=== PATIENT | male | born 1995 | race Caucasian/White ===

== ENCOUNTER → 2016-10-10 | Outpatient (REF) ==
--- NOTE | 2016-10-10 09:43 | REP ---
Bilateral TIB-fib series: Seven views. History: Degenerative disc disease. Disability. Findings: Multiple views of the tibia and fibula are presented bilaterally. There is mild hypertrophy of the anterior tibial apophysis on the left which may reflect old Latesha-Schlatter. Bones, joints, and soft tissues are otherwise radiographically unremarkable. No acute bony abnormality. Impression: Mild hypertrophy of the anterior tibial apophysis on the left, question old Latesha-Schlatter. Otherwise negative. Signed by Chai Manzanares MD 10/10/2016 10:23 A
--- NOTE | 2016-10-10 09:44 | REP ---
Lumbar spine series: Five views. History: Degenerative disc disease. Disability. No comparison imaging. Findings: Lumbar vertebral body heights are preserved and alignment is normal. There is some straightening of the normal lumbar lordosis. Disc spaces are maintained. Pedicles and posterior elements are intact. There is no evidence of spondylolysis or spondylolisthesis. Sacrum and SI joints are unremarkable. Psoas margins are symmetric. The visualized bowel gas pattern is normal. Impression: Slight straightening. Otherwise normal lumbar spine radiographs. Signed by Chai Manzanares MD 10/10/2016 10:23 A
--- NOTE | 2016-10-10 09:47 | REP ---
LEFT HIP: Two views. HISTORY: Disability. FINDINGS: AP and frog-leg views of the left hip demonstrate smooth rounded femoral head and intact hip joint space. Periarticular soft tissues are unremarkable. No erosive change or bony destructive lesion is seen. IMPRESSION: Normal left hip radiographs. Signed by Chai Manzanares MD 10/10/2016 10:24 A
--- NOTE | 2016-10-10 09:49 | REP ---
LEFT KNEE: Five views. HISTORY: Degenerative disc disease. Disability. FINDINGS: Five views of the left knee demonstrate mild old hypertrophy of the anterior tibial apophysis at the distal patellar tendon insertion. This may reflect old Latesha-Schlatter disease. Bones, joints, and soft tissues are otherwise unremarkable. IMPRESSION: Mild bony hypertrophy of the anterior tibial apophysis, question old Latesha-Schlatter. Otherwise negative left knee radiographs. Signed by Chai Manzanares MD 10/10/2016 10:24 A
--- NOTE | 2016-10-10 10:04 | REP ---
Bilateral shoulder series: Six views. History: Disability. Findings: Three views of each shoulder demonstrate normal alignment of the glenohumeral and acromioclavicular joints. No erosive change is seen. No evidence of recent or remote fracture. Periarticular soft tissues are unremarkable. Impression: Negative radiographs of the shoulders. Signed by Chai Manzanares MD 10/10/2016 10:24 A
--- NOTE | 2016-10-10 10:07 | REP ---
Cervical spine series: Eight views. History: Degenerative disc disease. Disability. Findings: There is straightening of the normal cervical lordosis. No subluxation or instability is seen. Vertebral body heights are preserved. Alignment is normal. Disc spaces are maintained. Oblique radiographs demonstrate intact neural foramina bilaterally at each cervical level and normally aligned facets. AP and open mouth odontoid views are unremarkable. Impression: Mild straightening. Otherwise negative cervical spine series. Signed by Chai Manzanares MD 10/10/2016 10:25 A
== END | disposition home or self-care (01) ==
LOC: M SMT 08:29
PROVIDERS: ATTEND Internal Medicine
DX: Z02.71 Encounter for disability determination (principal)

== ENCOUNTER → 2016-12-09 | Outpatient (CLI) | payer OTHER ==
--- NOTE | 2016-12-11 20:15 | SLEEPCENT ---
DATE OF PROCEDURE: 12/09/2016 REQUESTING PROVIDER: Surekha Moraes NP INTERPRETATION: Nocturnal polysomnography was performed for evaluation of sleep physiology in this patient with a history of sleep difficulty and nonrestorative sleep. 8 hours and 48 minutes of data were reviewed. There were 479 minutes of sleep identified. Sleep latency was normal at 11 minutes. Rapid eye movement (REM) sleep was not achieved. Sleep architecture showed poor progression and fragmentation. Overall sleep efficiency was 91.9%, but there was no REM time and little N3 sleep. The patient's electrocardiogram (EKG) showed a sinus rhythm with an average heart rate of 65 beats per minute. Electroencephalogram (EEG) showed significant coarsening in waveforms suggesting medication effect (venlafaxine). There were no focal events apprecaited. There were only two respiratory events identified of 10 seconds in duration or greater for an apnea-hypopnea index well within normal limits at 0.3. Significant snoring was however appreciated and respiratory related arousals occurred 6.8 times per hour. There was little activity in the limb leads. Arousals from limb events occurred only twice per hour. Oxygen saturations were normal. IMPRESSION: 1. Normal nocturnal polysomnography with snoring. 2. Alpha intrusion into sleep suggesting medication effect. RECOMMENDATIONS: Interventions to optimize upper airway tone may reduce snoring and improve efficiency of sleep to some degree.
== END ==
LOC: M SLEEP 19:45
PROVIDERS: ATTEND Nurse Practitioner Adult Health
DX: R06.83 Snoring (principal)